=== PATIENT | female | born 1995 | race Caucasian/White ===

== ENCOUNTER 2016-12-10 15:20 | Emergency (ER) | payer OTHER ==
[~2016-12-10] VITALS: Ht 157.5 cm; Wt 90.5 kg
[2016-12-10 15:23] VITALS: Ht 157.5 cm; Wt 90.5 kg
[2016-12-10] MEDS ORDERED: ALBU8.5H3 INH (16:19)
[2016-12-10] MEDS ORDERED: AZIT250T94 PO (16:19)
[2016-12-10] MEDS ORDERED: IBUP800T25 PO (16:19)
--- NOTE | 2016-12-10 16:21 | ERD ---
ER Documentation Chief Complaint Date/Time DATE: 12/10/16 TIME: 16:20 Chief Complaint intermittent fever x 1 week with cough x today HPI This 21-year-old female states she has had a cough with runny nose, sneezing, bilateral ear pain with fever for the past 3 days. Patient does have some malaise. No headache no photophobia no stiff neck. No shortness of breath nausea vomiting diarrhea abdominal pain ROS All systems reviewed and are negative except as per history of present illness. Medications Home Meds Active Scripts Ibuprofen* (Motrin*) 800 Mg Tab, 800 MG PO TID, #30 TAB Prov:HARPERDALJITYVONNEROBERT DO 12/10/16 Albuterol Sulfate* (Proair HFA*) 8.5 Gm Hfa.aer.ad, 2 PUFF INH Q4, #1 INHALER Prov:HARPERDALJITYVONNELINOJON Gonzales DO 12/10/16 Azithromycin* (Zithromax*) 250 Mg Tablet, 250 MG PO .ZPACK DIRECTED, #6 TAB TAKE 500 MG (2 TABS) THE FIRST DAY THEN 250 MG (1 TAB) DAYS 2-5 Prov:HARPERDALJITYVONNETRICIACOLE KishaNoelle DO 12/10/16 PMhx/Soc Medical and Surgical Hx: pt denies Medical Hx, pt denies Surgical Hx FmHx Family History: No coronary disease Physical Exam Vitals Vital Signs Date Time Temp Pulse Resp B/P Pulse Ox O2 Delivery O2 Flow Rate FiO2 12/10/16 15:23 102.5 138 18 138/82 96 Physical Exam Const: Well-developed, well-nourished Head: Atraumatic, normocephalic Eyes: Normal Conjunctiva, PERRLA, EOMI, normal sclera, no nystagmus ENT: Normal External Ears, left tympanic membrane with pus behind the membrane nose and Mouth, moist mucus membranes. Neck: Full range of motion. No meningismus, no lymphadenopathy. Resp: Clear to auscultation bilaterally, no wheezing, rhonchi, rales Cardio: Regular rate and rhythm, no murmurs, S1 S2 present Abd: Soft, non tender x 4, non distended. Normal bowel sounds, no guarding or rebound, no pulsitile abdominal masses or bruits Skin: No petechiae or rashes, no ecchymosis , no maculopapular rash Back: No midline or flank tenderness Ext: No cyanosis, or edema, FROM x 4, normal inspection, neurovascularly intact x 4 Neur: Awake and alert, STR 5/5 x 4, sensation intact x 4, no focal findings, cerebellum intact Psych: Normal Mood and Affect Departure Diagnosis: Primary Impression: Otitis media Otitis media type: suppurative Laterality: left Chronicity: acute Recurrence: not specified as recurrent Spontaneous tympanic membrane rupture: without spontaneous rupture Qualified Code: H66.002 - Acute suppurative otitis media of left ear without spontaneous rupture of tympanic membrane, recurrence not specified Additional Impression: URI (upper respiratory infection) URI type: unspecified URI Qualified Code: J06.9 - Upper respiratory tract infection, unspecified type Condition: Stable Patient Instructions: Otitis Media, Abx Tx (Adult), Uri, Viral, No Abx (Adult) ROBERT BOWMAN DO Dec 10, 2016 16:21
== END 2016-12-10 17:13 | disposition home or self-care (01) ==
LOC: FTE 15:20
DX: H66.002 Acute suppurative otitis media without spontaneous rupture of ear drum, left ear (principal); J06.9 Acute upper respiratory infection, unspecified
CPT/HCPCS: 99284

== ENCOUNTER 2017-09-03 11:57 | Emergency (ER) | END 2017-09-03 13:36 | disposition home or self-care (01) ==

== ENCOUNTER 2017-12-10 18:05 | Emergency (ER) | END 2017-12-10 19:30 | disposition home or self-care (01) ==

== ENCOUNTER 2018-05-19 18:26 | Emergency (ER) | END 2018-05-19 20:17 | disposition home or self-care (01) ==

== ENCOUNTER 2018-07-19 15:34 | Emergency (ER) | END 2018-07-19 16:32 | disposition home or self-care (01) ==